=== PATIENT | female | born 1995 | race Two or more races ===

== ENCOUNTER → 2016-12-06 | Outpatient (CLI) | payer OTHER ==
--- NOTE | ~2016-12-06 | CR7 ---
[facility] A Service of [facility] & [facility] RADIOLOGY TEXT RESULTS PATIENT: MICHELET GELLER LOCATION: [facility] : [birth year] UNIT #: [id number] AGE: [address]: BETITO GIBSON SEX: F ORDER DR: [id number] [facility] [address] [place], [place] [address] [id number] O MR#: [id number] Acc #: [id number] NAME: MICHELET GELLER : 1995 SEX: F STUDY DATE/TIME: 12/06/2016 14:13 UNIT: [facility] ROOM: STUDY DESCRIPTION: CR Abdomen Single AP View Attending Physician: Araceli Yoder Referring Physician: Jenna Guallpa M.D. Ordering Physician: Araceli Yoder Primary Care Physician: Jenna Guallpa M.D. MEDICAL IMAGING REPORT This report is preliminary unless electronic signature is present EXAM AP abdomen single view, 12/06/2016, [facility]. HISTORY 21-year-old female patient with abdominal pain right side x1 month. Nausea, vomiting, diarrhea. FINDINGS Single abdominal view demonstrates normal gas pattern. There is no distended bowel. I see no organomegaly and no pathologic calcifications. IMPRESSION Negative single AP view of the abdomen. Dictated by... Candelario Trujillo M.D. THIS IS AN ELECTRONICALLY VERIFIED REPORT Candelario Trujillo M.D. at 12/07/2016 8:10 AM JUDE/scotty TD: 12/06/2016 21:14 JOB #: [id number] MEDICAL IMAGING REPORT Page 1 of 1 COPY
--- NOTE | ~2016-12-06 | US5 ---
[facility] A Service of [facility] RADIOLOGY TEXT RESULTS PATIENT: MICHELET GELLER LOCATION: [facility] : [birth year] UNIT #: [id number] AGE: [address]: BETITO GIBSON SEX: F ORDER DR: [id number] [facility] [address] [place], [place] [address] [id number] O MR#: [id number] Acc #: [id number] NAME: MICHELET GELLER : 1995 SEX: F STUDY DATE/TIME: 12/06/2016 11:28 UNIT: [facility] ROOM: STUDY DESCRIPTION: US Abdominal Complete Attending Physician: Araceli Yoder Referring Physician: Jenna Guallpa M.D. Ordering Physician: Araceli Yoder Primary Care Physician: Jenna Guallpa M.D. MEDICAL IMAGING REPORT This report is preliminary unless electronic signature is present EXAM US Abdominal complete INDICATIONS Right upper quadrant abdominal pain for the past month. PROCEDURE Frye-scale and Doppler imaging of the abdomen. COMPARISON None. FINDINGS Pancreas completely obscured by bowel gas. Liver measures 14 cm and is unremarkable. Unremarkable gallbladder, right kidney. Common duct measures 3 mm. Visualized portions of the abdominal aorta and inferior vena cava are unremarkable. Spleen measures 10.3 cm. Left kidney normal. IMPRESSION Pancreas obscured by bowel gas, otherwise negative abdominal ultrasound. Dictated by... Gabe Carlson M.D. THIS IS AN ELECTRONICALLY VERIFIED REPORT Gabe Carlson M.D. at 12/07/2016 7:35 AM EED/psc TD: 12/06/2016 22:38 JOB #: [id number] MEDICAL IMAGING REPORT [facility] A Service of [facility] RADIOLOGY TEXT RESULTS PATIENT: MICHELET GELLER LOCATION: [facility] : [birth year] UNIT #: [id number] AGE: [address]: ARTHUR,BETITO SEX: F ORDER DR: Page 1 of 1 COPY
== END | disposition home or self-care (01) ==
LOC: CWCC 10:54
DX: R10.9 Unspecified abdominal pain (principal)
CPT/HCPCS: 74000; 76700

== ENCOUNTER 2017-02-02 16:02 | Emergency (ER) | payer OTHER ==
[~2017-02-02] VITALS: Ht 154.9 cm; Wt 59.0 kg
--- NOTE | ~2017-02-02 | CT71 ---
[facility] A Service of [facility] RADIOLOGY TEXT RESULTS PATIENT: MICHELET SAINI LOCATION: [facility] : [birth year] UNIT #: [id number] AGE: [address]: Emelyn Leonard SEX: F ORDER DR: [id number] [facility] [address] [place], [place] [address] [id number] E MR#: [id number] Acc #: [id number] NAME: MICHELET SAINI : 1995 SEX: F STUDY DATE/TIME: 02/02/2017 18:18 UNIT: [place] ROOM: STUDY DESCRIPTION: CT Head Wo Contrast Attending Physician: Emelyn Leonard P.A.-C. Referring Physician: Jenna Guallpa M.D. Ordering Physician: Emelyn Leonard P.A.-C. Primary Care Physician: Jenna Guallpa M.D. MEDICAL IMAGING REPORT This report is preliminary unless electronic signature is present EXAM CT head without contrast, 02/02/2017 HISTORY 21-year-old female with headache for [address] head, 03/10/2015 TECHNIQUE Routine unenhanced axial images performed through the brain. This CT exam was performed with one or more of the following radiation dose reduction techniques: Automatic exposure control, adjustment of mA and/or kV according to patient size, and iterative reconstruction. FINDINGS No hemorrhage, acute infarction, mass lesion, or abnormal extraaxial fluid collection. No midline shift or focal mass effect. Ventricular system normal in size and configuration. No acute bony abnormality. Visualized paranasal sinuses and mastoid air cells are clear. IMPRESSION Negative unenhanced head CT. No change from 03/10/2015. Dictated by... Christiano Cardoza M.D. THIS IS AN ELECTRONICALLY VERIFIED REPORT Christiano Cardoza M.D. at 02/03/2017 9:59 AM SHAKILA/shahram TD: 02/03/2017 01:57 [facility] A Service of [facility] RADIOLOGY TEXT RESULTS PATIENT: MICHELET SAINI LOCATION: [place] : [birth year] UNIT #: [id number] AGE: [address]: Emelyn Leonard SEX: F ORDER DR: JOB #: [id number] MEDICAL IMAGING REPORT Page 1 of 1 COPY
--- NOTE | ~2017-02-02 | CR58 ---
[facility] A Service of [facility] RADIOLOGY TEXT RESULTS PATIENT: MICHELET SAINI LOCATION: [place] : [birth year] UNIT #: [id number] AGE: [address]: Emelyn Leonard SEX: F ORDER DR: [id number] [facility] [address] [place], [place] [address] [id number] E MR#: [id number] Acc #: [id number] NAME: MICHELET SAINI : 1995 SEX: F STUDY DATE/TIME: 02/02/2017 18:09 UNIT: [place] ROOM: STUDY DESCRIPTION: CR Cervical Spine 2 or 3 Views Attending Physician: Emelyn Leonard P.A.-C. Referring Physician: Jenna Guallpa M.D. Ordering Physician: Emelyn Leonard P.A.-C. Primary Care Physician: Jenna Guallpa M.D. MEDICAL IMAGING REPORT This report is preliminary unless electronic signature is present EXAM Cervical spine 02/02/2017 HISTORY 21-year-old female with neck pain for 2 months. COMPARISON None. FINDINGS 5 views of the cervical spine demonstrate no acute fracture or subluxation. Vertebral body heights and alignment are normal. Prevertebral soft tissues normal. Atlantoaxial relationship normal. Cervicothoracic junction is unremarkable. Disc spaces and facets are within normal limits. IMPRESSION Unremarkable cervical spine Dictated by... Christiano Cardoza M.D. THIS IS AN ELECTRONICALLY VERIFIED REPORT Christiano Cardoza M.D. at 02/03/2017 9:59 AM SHAKILA/maninder TD: 02/03/2017 02:04 JOB #: [id number] MEDICAL IMAGING REPORT Page 1 of 1 COPY
[2017-02-02 17:51] LABS: URINE SOURCE CLEAN CATCH
[2017-02-02 17:59] LABS: URINE APPEARANCE CLEAR; URINE BILIRUBIN NEG (NEG); URINE BLOOD TRACE (NEG); URINE COLOR DK YELLOW; URINE GLUCOSE NEG (NEG); URINE KETONE TRACE (NEG); URINE LEUKOCYTE ESTERASE NEG (NEG); URINE NITRATE NEG (NEG); URINE PH 5.5 (5-8); URINE PROTEIN TRACE (NEG); URINE SPECIFIC GRAVITY 1.037 (1.003-1.035)
[2017-02-02 18:03] LABS: CULTURE INDICATED? YES; URINE BACTERIA AUWI 1+ (NEGATIVE); URINE SQUAMOUS EPITHELIAL CELL OCC /[HPF]
== END 2017-02-02 19:25 | disposition home or self-care (01) ==
LOC: CED 16:02 → CFTX 16:02
PROVIDERS: Emergency Medicine
DX: R51 Headache (principal); M62.838 Other muscle spasm; N39.0 Urinary tract infection, site not specified
CPT/HCPCS: 70450; 72040; 81003; 84703; 87086; 99284; J1885